=== PATIENT | male | born 1950 | race Hispanic/Latino ===

== ENCOUNTER → 2017-08-12 | Outpatient (CLI) | payer MEDICARE ==
[~2017-08-12] MED LIST: DIATRIZOATE MEGL/DIATRIZOA SOD 30 ML BTL PO ONE
--- NOTE | 2017-08-12 17:47 | Diagnostic Imaging Report ---
PROCEDURE: CT ABDOMEN AND PELVIS WITHOUT CONTRAST TECHNIQUE: The abdomen and pelvis were scanned utilizing a multidetector helical scanner from the diaphragm to the lesser trochanter after the oral administration of Gastroview. No IV contrast was administered because of per physician request. Coronal and sagittal multiplanar reformations were obtained. COMPARISON: None. INDICATIONS: RIGHT LOWER QUADRANT LUMP FINDINGS: ABSENCE OF INTRAVENOUS CONTRAST DECREASES SENSITIVITY FOR DETECTION OF FOCAL LESIONS AND VASCULAR PATHOLOGY. LOWER THORAX: Normal. HEPATOBILIARY: No focal hepatic lesions. Cholecystectomy. No biliary ductal dilatation. Mild pneumobilia in the left upper lobe. SPLEEN: No splenomegaly. PANCREAS: No focal masses or ductal dilatation. ADRENALS: No adrenal nodules. KIDNEYS/URETERS: No hydronephrosis, stones, or solid mass lesions. PELVIC ORGANS/BLADDER: Unremarkable. PERITONEUM / RETROPERITONEUM: No free air or fluid. LYMPH NODES: No lymphadenopathy. VESSELS: Unremarkable. GI TRACT: The ascending segment of the duodenum is tethered to the ascending colon with a likely gas containing fistulous connection (series 2 image 34). This area fistulization extends superiorly to abut the right hepatic lobe edge (series 301 image 37 and also extends to the cholecystectomy clips. There are inflammatory changes extending down the right paracolic gutter. 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 Complete loss of joint space at L1-L2 with opposing Schmorl's node defect. Previous scarring in the right lower quadrant, likely scar from previous appendectomy. (Series 2 image 65) IMPRESSION: 1. Area of palpation in the right lower quadrant, likely represents area of scarring from previous surgery. 2. Fistulous connection between the ascending colon and the duodenum and extends superiorly to abut the right hepatic lobe liver edge as well as the cholecystectomy region. This is concerning for possible malignancy. Correlate for previous possible abscess. Dictated by: Cornelio Robbins M.D. on 08/12/2017 at 17:46 Electronically approved by: Cornelio Robbins M.D. on 08/12/2017 at 17:47
== END ==
LOC: CT 15:14
PROVIDERS: ATTEND Internal Medicine
DX: R19.03 Right lower quadrant abdominal swelling, mass and lump (principal)
CPT/HCPCS: 74176

== ENCOUNTER → 2019-07-16 | Outpatient (CLI) | payer MEDICARE, OTHER ==
[2019-07-16 14:30] LABS: BASOPHILS % 0.3 % (0.0-1.0); EOSINOPHILS # (AUTO) 0.1 (0.0-0.4); EOSINOPHILS % 0.8 % (0.0-6.0); HEMATOCRIT 43.6 % (38.2-49.6); HEMOGLOBIN 14.3 g/dL (14.0-18.0); LYMPHOCYTES # (AUTO) 0.7 (1.0-3.2); LYMPHOCYTES % 8.9 % (18.0-39.1); MEAN CORPUSCULAR HEMOGLOBIN 32.4 pg (28-32); MEAN CORPUSCULAR HGB CONC 32.8 g/dL (31-35); MEAN CORPUSCULAR VOLUME 98.9 fL (81-99); MONOCYTES # (AUTO) 0.2 (0.2-0.8); NEUTROPHILS # (AUTO) 6.9 (2.1-6.9); NEUTROPHILS % 86.2 % (38.7-80.0); PLATELET COUNT 190 x10e3/uL (140-360); RED BLOOD COUNT 4.41 x10e6/uL (4.3-5.7); RED CELL DISTRIBUTION WIDTH 13.7 % (11.7-14.4)
== END ==
LOC: LAB 14:05
PROVIDERS: ATTEND Podiatrist Foot & Ankle Surgery
DX: M10.072 Idiopathic gout, left ankle and foot (principal)
CPT/HCPCS: 36415; 84550; 85025

== ENCOUNTER 2020-01-01 15:25 | Emergency (ER) | payer MEDICARE, OTHER ==
[~2020-01-01] VITALS: Ht 188 cm; Wt 83.9 kg
--- NOTE | 2020-01-01 16:30 | NUR ---
bladder scanner revealed 170 cc
--- OUTSIDE RECORDS SUMMARY | 2020-01-01 17:12 | XMS REPORT | Continuity of Care Document ---
Author Author [facility] t Organization [facility] Address 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, [place] [address] xxxxxxxxx 2012 00:00:00 [facility] Problems Condition Name Condition Details Condition Category Status Onset Date Resolution Date Last Treatment Date Treating Clinician Comments Source Healthcare maintenance Healthcare maintenance Disease Active 2018-02-25 00:00:00 [facility] Chronic kidney disease, unspecified Chronic kidney disease, unsp ecified Disease Active 2016-04-05 00:00:00 [facility] [employer] Vitamin D deficiency Vitamin D deficiency Disease Active 00:00:00 [facility] Human immunodeficiency virus (HIV) disease Human immun odeficiency virus (HIV) disease Disease Active 2015-05-05 00:00:00 [facility] [employer] Hypothyroidism (acquired) Hypothyroidism (acquired) Disease Ac tive 2015-05-05 00:00:00 [facility] Dyslipidemia Dyslipidemia Disease Active 2011-12-20 00:00:00 [facility] History of Past Illness Condition Name Condition Details Condition Category Status Onset Date Resolution Date Last Treatment Date Treating Clinician Comments Source Bladder cancer Bladder cancer Disease Resolved 2018-02-18 00:00: 00 2019-01-08 00:00:00 2019-01-08 09:54:56 Raymond meyers Allergies, Adverse Reactions, Alerts This patient has no known allergies or adverse reactions. Family History Family Member Diagnosis Comments Start Date Stop Date Source Natural father Diabetes [facility] Natural father Heart [facility] Natural mother Heart [facility] Social History Social Habit Start Date Stop Date Quantity Comments Source Sex Assigned At [facility] Exposure to SARS-CoV-2 (event) Not sure [facility] Alcohol intake 2019-12-10 00:00:00 2019-12-10 00:00:00 Current non-drinker of alcohol (finding) [facility] History SDOH Food Worry 2018-02-18 00:00:00 2018-02-18 00:00:00 1 [facility] SDOH Food Scarcity 2018-02-18 00:00:00 2018-02-18 00:00:00 1 [facility] Alcohol Comment 2009-12-13 00:00:00 2009-12-13 00:00:00 None. [facility] Smoking Status Start Date Stop Date Source Never smoker [facility] Medications Ordered Medication Name Filled Medication Name Start Date Stop Da te Current Medication? Ordering Clinician Indication Dosage Frequency Signature (SIG) Comments Components Source tamsulosin (FLOMAX) 0.4 mg extended release capsule 12-09 09:29:52 Yes .4mg QD Take 0.4 mg by mouth daily. [facility] Levothyroxine 75 mcg cap 2019-12-10 09:29:27 Yes Take by mouth. [facility] atorvastatin (LIPITOR) 10 mg tablet 2019-12-10 09:29:23 Yes 5mg Take 5 mg by mouth at bedtime nightly (1/2 tablet of 10mg). [facility] lamiVUDine (EPIVIR) 150 mg tablet 2019-12-10 00:00:00 Yes Human immunodeficiency virus (HIV) disease 150mg QD Take 1 tablet by mout h daily. [facility] dolutegravir (TIVICAY) 50 mg tablet 2019-12-10 00:00:00 Yes Human immunodeficiency virus (HIV) disease 50mg QD Take 1 tablet by mout h daily. [facility] abacavir (ZIAGEN) 300 mg tablet 2019-12-10 00:00:00 Yes Human immunodeficiency virus (HIV) disease 600mg QD Take 2 tablets by mouth daily. [facility] darunavir-cobicistat (PREZCOBIX) 800-150 mg-mg Tab tablet 2019-12-10 00:00:00 Yes Human immunodeficiency virus (HIV) disease 1{tb l} QD Take 1 tablet by mouth daily. [facility] ergocalciferol (VITAMIN D2) 1,250 mcg (50,000 unit) capsule 2019-12-10 00:00:00 Yes Vitamin D deficiency 62097V Take 1 capsule by mouth ONCE A WEEK. [facility] fluconazole (DIFLUCAN) 200 mg tablet 2019-12-10 00:00:00 Yes Onychomycosis of toenail 200mg Take 1 tablet by mouth ONCE A WEEK. [facility] finasteride (PROSCAR) 5 mg tablet 2019-11-29 00:00:00 Yes TK 1 T PO QD [facility] lisinopriL (PRINIVIL, ZESTRIL) 5 mg tablet 2019-10-19 00:00:00 Yes TK ONE T PO QD [facility] lamiVUDine (EPIVIR) 150 mg tablet 2019-06-25 00:00:00 2019 00:00:00 No Human immunodeficiency virus (HIV) disease 150mg QD Take 1 tablet by mouth daily. [facility] dolutegravir (TIVICAY) 50 mg tablet 2019-06-25 00:00:0 0 2019-12-10 00:00:00 No Human immunodeficiency virus (HIV) disease 50mg QD Take 1 tablet by mouth daily. [facility] abacavir (ZIAGEN) 300 mg tablet 2019-06-25 00:00:00 00:00:00 No Human immunodeficiency virus (HIV) disease 600mg QD Take 2 tablets by mouth daily. [facility] darunavir-cobicistat (PREZCOBIX) 800-150 mg-mg Tab tablet 2019-06-25 00:00:00 2019-12-10 00:00:00 No Human immunodeficiency virus (HIV) dis ease 1{tbl} QD Take 1 tablet by mouth daily. [facility] ergocalciferol (VITAMIN D2) 1,250 mcg (50,000 unit) capsule 2019-06-25 00:00:00 2019-12-10 00:00:00 No Vitamin D deficiency 43860M Take 1 capsule by mouth weekly. [facility] fluconazole (DIFLUCAN) 200 mg tablet 2019-06-25 00:00: 00 2019-12-10 00:00:00 No Onychomycosis of toenail 200mg Take 1 tablet by mouth weekly. [facility] lamiVUDine (EPIVIR) 150 mg tablet 2019-06-10 00:00:00 2019 00:00:00 No Human immunodeficiency virus (HIV) disease 150mg QD TAKE 1 TABLET BY MOUTH DAILY [facility] dolutegravir (TIVICAY) 50 mg tablet 2019-06-10 00:00:0 0 2019-06-25 00:00:00 No Human immunodeficiency virus (HIV) disease 50mg QD Take 1 tablet by mouth daily. [facility] abacavir (ZIAGEN) 300 mg tablet 2019-06-10 00:00:00 00:00:00 No Human immunodeficiency virus (HIV) disease 600mg QD Take 2 tablets by mouth daily. [facility] darunavir-cobicistat (PREZCOBIX) 800-150 mg-mg Tab tablet 2019-05-11 00:00:00 2019-06-25 00:00:00 No Human immunodeficiency virus (HIV) dis ease 1{tbl} QD Take 1 tablet by mouth daily. [facility] PREZCOBIX 800-150 mg-mg Tab tablet 2019-05-06 00:00:00 00:00:00 No Human immunodeficiency virus (HIV) disease TAKE 1 TABLET BY MOUTH DAILY [facility] Omeprazole 40 mg capsule 2019-01-08 09:47:07 2019-01-08 00:00:00 No 40mg QD Take 40 mg by mouth daily. [facility] ergocalciferol (VITAMIN D2) 50,000 unit capsule 2019-01-08 00:00:00 2019-06-25 00:00:00 No Vitamin D deficiency 66882S Take 1 capsule by mouth weekly. [facility] fluconazole (DIFLUCAN) 200 mg tablet 2019-01-08 00:00: 00 2019-06-25 00:00:00 No Onychomycosis of toenail 200mg Carlton e 1 tablet by mouth weekly for 180 days. [facility] abacavir (ZIAGEN) 300 mg tablet 2019-01-08 00:00:00 00:00:00 No Human immunodeficiency virus (HIV) disease 600mg QD Take 2 tablets by mouth daily. [facility] dolutegravir (TIVICAY) 50 mg tablet 2019-01-08 00:00:0 0 2019-06-10 00:00:00 No Human immunodeficiency virus (HIV) disease 50mg QD Take 1 tablet by mouth daily. [facility] lamiVUDine (EPIVIR) 150 mg tablet 2019-01-08 00:00:00 2019 00:00:00 No Human immunodeficiency virus (HIV) disease 150mg QD Take 1 tablet by mouth daily. [facility] darunavir-cobicistat (PREZCOBIX) 800-150 mg-mg Tab tablet 2019-01-08 00:00:00 2019-05-11 13:49:28 No Human immunodeficiency virus (HIV) dis ease 1{tbl} QD Take 1 tablet by mouth daily. [facility] tropicamide (MYDRIACYL) 0.5 % ophthalmic solution 2019-01-08 00:00:00 2019-01-08 00:00:00 No 1[drp] Insti ll 1 Drop in each eye once as needed for up to 1 dose (for poor retina scan image). [facility] abacavir (ZIAGEN) 300 mg tablet 2018-10-09 00:00:00 00:00:00 No Human immunodeficiency virus (HIV) disease 600mg QD TAKE 2 TABLETS BY MOUTH DAILY [facility] ergocalciferol (VITAMIN D2) 50,000 unit capsule 2018-07-18 00:00:00 2019-01-08 00:00:00 No Vitamin D deficiency 36077E Take 1 capsule by mouth weekly. [facility] abacavir (ZIAGEN) 300 mg tablet 2018-07-18 00:00:00 00:00:00 No Human immunodeficiency virus (HIV) disease 600mg QD Take 2 tablets by mouth daily. [facility] lamiVUDine (EPIVIR) 150 mg tablet 2018-07-18 00:00:00 2018 00:00:00 No Human immunodeficiency virus (HIV) disease 150mg QD Take 1 tablet by mouth daily. [facility] dolutegravir (TIVICAY) 50 mg tablet 2018-07-18 00:00:0 0 2019-01-08 00:00:00 No Human immunodeficiency virus (HIV) disease 50mg QD Take 1 tablet by mouth daily. [facility] darunavir-cobicistat (PREZCOBIX) 800-150 mg-mg Tab tablet 2018-07-18 00:00:00 2019-01-08 00:00:00 No Human immunodeficiency virus (HIV) dis ease 1{tbl} QD Take 1 tablet by mouth daily. [facility] Immunizations Ordered Immunization Name Filled Immunization Name Date Status Comments Source Zoster Vaccine (Shingrix) 2019-06-25 00:00:00 Completed [facility] Influenza, VACCINE<Fluzone, High Dose>(PF) 2019-04-11 00:0 0:00 Completed [facility] PCV 13 (Pnuemococcal Conjugated 13 Valent) 2019-04-11 00:0 0:00 Completed [facility] Zoster Vaccine (Shingrix) 2018-08-30 00:00:00 [facility] PPV 23 Pneumococcal Polysaccaride 2016-09-20 00:00:00 Comp [facility] PPD 2015-04-25 00:00:00 Completed [facility] Influenza Vaccine 2015-02-16 00:00:00 Completed [facility] PPD 2014-03-26 00:00:00 Completed [facility] Influenza Vaccine 2014-03-26 00:00:00 Completed [facility] Pneumococcal 13-valent conj 0.5 mL injection 2012-10-24 00 :00:00 Completed [facility] PPD 2012-10-24 00:00:[address] [facility] PPD 2011-08-31 00:00:[address] [facility] PPV 23 Pneumococcal Polysaccaride 2011-05-03 00:00:00 Comp [facility] Tdap Tetanus, diphtheria, acellular pertussis Vaccine 2011-05-03 00:00:00 Completed [facility] Influenza Vaccine 2010-03-14 00:00:00 Completed [facility] PPD 2009-12-23 00:00:[address] [facility] Vital Signs Vital Name Observation Time Observation Value Comments Source Systolic blood pressure 2019-06-25 09:11:00 126 mm[Hg] [facility] Diastolic blood pressure 2019-06-25 09:11:00 78 mm[Hg] [facility] Heart rate 2019-06-25 09:11:00 88 /min [facility] Body temperature 2019-06-25 09:11:00 36.44 Jody [facility] Respiratory rate 2019-06-25 09:11:00 18 /min [facility] Body height 2019-06-25 09:11:00 188 cm [facility] Body weight 2019-06-25 09:11:00 81.647 kg [facility] BMI 2019-06-25 09:11:00 23.11 kg/m2 [facility] Oxygen saturation in Arterial blood by Pulse oximetry 06-25 09:11:00 99 /min [facility] Procedures Procedure Date / Time Performed Performing Clinician Sour e URINALYSIS 2019-11-26 09:38:00 Yuri Fuller alth CHLAM/GC DNA AMPLI 2019-11-26 09:38:00 Yuri Fuller [facility] URINALYSIS 2019-11-26 09:38:00 Yuri Fuller alth CBC/DIFF 2019-11-26 09:22:00 Yuri Fuller alth LIVER PROFILE 2019-11-26 09:22:00 Yuri Fuller alth LIPID PROFILE 2019-11-26 09:22:00 Yuri Fuller alth HIV RNA VIRAL LOAD 2019-11-26 09:22:00 Yuri Fuller [facility] CD4/CD8 RATIO GRP 2019-11-26 09:22:00 Yuri Fuller [facility] SYPHILIS MONITOR FOR TREATMENT 2019-11-26 09:22:00 Emre Fuller [facility] BASIC METABOLIC PANEL 2019-11-26 09:22:00 Yuri Fuller [facility] THYROID STIMULATING HORMONE (TSH) 2019-11-26 09:22:00 Heriberto Fuller [facility] PROSTATE SPECIFIC ANTIGEN (PSA) 2019-11-26 09:22:00 Cali Fuller [facility] VIT D, 25-HYDROXY 2019-11-26 09:22:00 Yuri Fuller [facility] HEMOGLOBIN A1C 2019-11-26 09:22:00 Yuri Fuller alth HEPATITIS C VIRUS AB 2019-11-26 09:22:00 Yuri Fuller [facility] URIC ACID 2019-11-26 09:22:00 Yuri Fuller alth CBC 2019-11-26 09:22:00 Yuri Fuller alth CBC/DIFF 2019-06-11 11:00:00 Yuri Fuller alth LIVER PROFILE 2019-06-11 11:00:00 Yuri Fuller alth LIPID PROFILE 2019-06-11 11:00:00 Yuri Fuller alth HIV RNA VIRAL LOAD 2019-06-11 11:00:00 Yuri Fuller [facility] CD4/CD8 RATIO GRP 2019-06-11 11:00:00 Yuri Fuller [facility] SYPHILIS MONITOR FOR TREATMENT 2019-06-11 11:00:00 Emre Fuller [facility] BASIC METABOLIC PANEL 2019-06-11 11:00:00 Yuri Fuller [facility] QUANTIFERON TB GOLD 2019-06-11 11:00:00 Yuri Fuller [facility] THYROID STIMULATING HORMONE (TSH) 2019-06-11 11:00:00 Heriberto Fuller [facility] PROSTATE SPECIFIC ANTIGEN (PSA) 2019-06-11 11:00:00 Cali Fuller [facility] VIT D, 25-HYDROXY 2019-06-11 11:00:00 Yuri Fuller [facility] HEMOGLOBIN A1C 2019-06-11 11:00:00 Yuri Fuller alth HEPATITIS C VIRUS AB 2019-06-11 11:00:00 Yuri Fuller [facility] CBC 2019-06-11 11:00:00 Yuri Fuller alth QUANTIFERON TB GOLD PLUS (BKR) 2019-06-11 11:00:00 Emre Fuller [facility] URINALYSIS 2019-06-11 10:55:00 Yuri Fuller alth URINALYSIS 2019-06-11 10:55:00 Yuri Fuller alth CHLAM/GC DNA AMPLI 2019-06-11 10:05:00 Yuri Fuller [facility] FECAL OCCULT BLOOD 2019-01-23 10:50:00 Yuri Fuller [facility] HEMOCCULT KIT FOR SPECIMEN COLLECTION AT HOME 2019-01-08 09: 23:14 Yuri Fuller [facility] Plan of Care Planned Activity Planned Date Details Comments Source Future Scheduled Test 2022-10-24 00:00:00 [facility] for [facility] neoplasm of colon (procedure) [code = 490351533] [facility] Scheduled Test 2020-11-25 00:00:00 Hemoglobin A1c nessa surement (procedure) [code = 15782046] [facility] Scheduled Test 2020-02-18 00:00:00 IMM Influenza Seas onal Feb to July (>/= 19 yrs) [code = IMM Influenza Seasonal Feb to July (>/= 19 yrs)] [facility] Scheduled Test 2017-10-09 00:00:00 DM Retinal Exam (Y early) [code = DM Retinal Exam (Yearly)] [facility] Scheduled Test 1968 00:00:00 DM Foot Exam (Year ly) [code = DM Foot Exam (Yearly)] [facility] Encounters Start Date/Time End Date/Time Encounter Type Admission Type Att[facility] Care Department Encounter ID Source 2019-10-04 17:17:00 2019-10-04 17:17:00 Emergency E SE [facility] [address] [facility] Results Test Description Test Time Test Comments Results Result Comments Source CT ABDOMEN/PELVIS WO [place] [address] Patient Name: BLAKE EMMANUEL MR #: [id number] : 1950 Age/Sex: 67/M Req #: [id number] Adm Physician: Ordered by: JOCELYN ORTIZ M.D. Report #: [id number] Location: CT Room/Bed: Procedure: [id number] CT/CT ABDOMEN/PELVIS WO Exam Date: Exam Time: REPORT STATUS: Signed PROCEDURE: CT ABDOMEN AND PELVIS WITHOUT CONTRAST TECHNIQUE: The abdomen and pelvis were scanned utilizing a multidetector helical scanner from the diaphragm to the lesser trochanter after the oral administration of Gastroview. No IV contrast was administered because of per physician request. Coronal and sagittal multiplanar reformations were obtained. COMPARISON: None. INDICATIONS: RIGHT LOWER QUADRANT LUMP FINDINGS: ABSENCE OF INTRAVENOUS CONTRAST DECREASES SENSITIVITY FOR DETECTION OF FOCAL LESIONS AND VASCULAR PATHOLOGY. LOWER THORAX: Normal. HEPATOBILIARY: No focal hepatic lesions. Cholecystectomy. No biliary ductal dilatation. Mild pneumobilia in the left upper lobe. SPLEEN: No splenomegaly. PANCREAS: No focal masses or ductal dilatation. ADRENALS: No adrenal nodules. KIDNEYS/URETERS: No hydronephrosis, stones, or solid mass lesions. PELVIC ORGANS/BLADDER: Unremarkable. PERITONEUM / RETROPERITONEUM: No free air or fluid. LYMPH NODES: No lymphadenopathy. VESSELS: Unremarkable. GI TRACT: The ascending segment of the duodenum is tethered to the ascending colon with a likely gas containing fistulous connection (series 2 image 34). This area fistulization extends superiorly to abut the right hepatic lobe edge (series 301 image 37 and also extends to the cholecystectomy clips. There are inflammatory changes extending down the right paracolic gutter. 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 Complete loss of joint space at L1-L2 with opposing Schmorl's node defect. Previous scarring in the right lower quadrant, likely scar from previous appendectomy. (Series 2 image 65) IMPRESSION: 1. Area of palpation in the right lower quadrant, likely represents area of scarring from previous surgery. 2. Fistulous connection between the ascending colon and the duodenum and extends superiorly to abut the right hepatic lobe liver edge as well as the cholecystectomy region. This is concerning for possible malignancy. Correlate for previous possible abscess. Dictated by: Cornelio Roque M.D. on 08/12/2017 at 17:46 Electronically approved by: Cornelio Roque M.D. on 08/12/2017 at 17:47 Dictated By: CORNELIO ROQUE MD 46 Transcribed By: CECY on 08/12/171746 COPY TO: JOCELYN ORTIZ M.D.
--- OUTSIDE RECORDS SUMMARY | 2020-01-01 17:12 | XMS REPORT | Clinical Summary ---
Author Author [facility] ict Organization [facility] ict Address Unknown Phone Unavailable Care Team Providers Care Land Economist Name Role Phone Yuri Harper MD PCP Allergies Comments Active Allergy Reactions Severity Noted Date No Known Allergies 09/28/2010 Medications End Date Status Medication Sig Dispensed Refills Start Date Active tamsulosin (FLOMAX) 0.4 Take 0.4 mg 0 mg extended release by mouth capsule daily. Active atorvastatin (LIPITOR) 10 Take 5 mg by 0 mg tablet mouth at bedtime nightly (1/2 tablet of 10mg). Active Levothyroxine 75 mcg cap Take by 0 mouth. Active finasteride (PROSCAR) 5 TK 1 T PO QD 0 mg tablet 0 Active lisinopriL (PRINIVIL, TK ONE T PO 0 10/19/19 2 ZESTRIL) 5 mg tablet QD 0 Active lamiVUDine (EPIVIR) 150 Take 1 tablet 30 tablet 11 mg tabletIndications: by mouth 0 Human immunodeficiency daily. virus (HIV) disease Active dolutegravir (TIVICAY) 50 Take 1 tablet 30 tablet 11 mg tabletIndications: by mouth 0 Human immunodeficiency daily. virus (HIV) disease Active abacavir (ZIAGEN) 300 mg Take 2 60 tablet 11 0 tabletIndications: Human tablets by 0 immunodeficiency virus mouth daily. (HIV) disease Active darunavir-cobicistat Take 1 tablet 30 tablet 11 (PREZCOBIX) 800-150 mg-mg by mouth 0 Tab tabletIndications: daily. Human immunodeficiency virus (HIV) disease Active ergocalciferol (VITAMIN Take 1 12 capsule 3 D2) 1,250 mcg (50,000 capsule by 0 unit) capsuleIndications: mouth ONCE A Vitamin D deficiency WEEK. Active fluconazole (DIFLUCAN) Take 1 tablet 12 tablet 2 0 7/23/202 200 mg tabletIndications: by mouth ONCE 0 Onychomycosis of toenail A WEEK. 01/08/2019 Discontinued (Therapy comple reese) Omeprazole 40 mg capsule Take 40 mg by 0 mouth daily. 01/08/2019 Discontinued (Reorder) ergocalciferol (VITAMIN Take 1 12 capsule 3 D2) 50,000 unit capsule by 9 capsuleIndications: mouth weekly. Vitamin D deficiency 01/08/2019 Discontinued (Duplicate Orde r) abacavir (ZIAGEN) 300 mg Take 2 60 tablet 6 0 tabletIndications: Human tablets by 9 immunodeficiency virus mouth daily. (HIV) disease 01/08/2019 Discontinued (Reorder) lamiVUDine (EPIVIR) 150 Take 1 tablet 30 tablet 6 mg tabletIndications: by mouth 9 Human immunodeficiency daily. virus (HIV) disease 01/08/2019 Discontinued (Reorder) dolutegravir (TIVICAY) 50 Take 1 tablet 30 tablet 11 mg tabletIndications: by mouth 9 Human immunodeficiency daily. virus (HIV) disease 01/08/2019 Discontinued (Reorder) darunavir-cobicistat Take 1 tablet 30 tablet 11 (PREZCOBIX) 800-150 mg-mg by mouth 9 Tab tabletIndications: daily. Human immunodeficiency virus (HIV) disease 01/08/2019 Discontinued (Reorder) abacavir (ZIAGEN) 300 mg TAKE 2 60 tablet 11 0 tabletIndications: Human TABLETS BY 9 immunodeficiency virus MOUTH DAILY (HIV) disease 01/08/2019 Discontinued (Error) tropicamide (MYDRIACYL) Instill 1 15 mL 0 0.5 % ophthalmic solution Drop in each 9 eye once as needed for up to 1 dose (for poor retina scan image). 06/10/2019 Discontinued (Reorder) abacavir (ZIAGEN) 300 mg Take 2 60 tablet 11 0 tabletIndications: Human tablets by 9 immunodeficiency virus mouth daily. (HIV) disease 05/11/2019 Discontinued (Reorder) darunavir-cobicistat Take 1 tablet 30 tablet 11 (PREZCOBIX) 800-150 mg-mg by mouth 9 Tab tabletIndications: daily. Human immunodeficiency virus (HIV) disease 06/10/2019 Discontinued (Reorder) dolutegravir (TIVICAY) 50 Take 1 tablet 30 tablet 11 mg tabletIndications: by mouth 9 Human immunodeficiency daily. virus (HIV) disease 06/10/2019 Discontinued lamiVUDine (EPIVIR) 150 Take 1 tablet 30 tablet 6 mg tabletIndications: by mouth 9 Human immunodeficiency daily. virus (HIV) disease 06/25/2019 Discontinued (Reorder) ergocalciferol (VITAMIN Take 1 12 capsule 3 D2) 50,000 unit capsule by 9 capsuleIndications: mouth weekly. Vitamin D deficiency 06/25/2019 Discontinued (Reorder) fluconazole (DIFLUCAN) Take 1 tablet 12 tablet 1 0 200 mg tabletIndications: by mouth 9 Onychomycosis of toenail weekly for 180 days. 06/25/2019 Discontinued (Duplicate Orde r) PREZCOBIX 800-150 mg-mg TAKE 1 TABLET 30 tablet 11 Tab tabletIndications: BY MOUTH 9 Human immunodeficiency DAILY virus (HIV) disease 06/25/2019 Discontinued (Reorder) darunavir-cobicistat Take 1 tablet 30 tablet 11 (PREZCOBIX) 800-150 mg-mg by mouth 9 Tab tabletIndications: daily. Human immunodeficiency virus (HIV) disease 06/25/2019 Discontinued (Reorder) lamiVUDine (EPIVIR) 150 TAKE 1 TABLET 30 tablet 11 mg tabletIndications: BY MOUTH 0 Human immunodeficiency DAILY virus (HIV) disease 06/25/2019 Discontinued (Reorder) dolutegravir (TIVICAY) 50 Take 1 tablet 30 tablet 11 mg tabletIndications: by mouth 0 Human immunodeficiency daily. virus (HIV) disease 06/25/2019 Discontinued (Reorder) abacavir (ZIAGEN) 300 mg Take 2 60 tablet 11 0 tabletIndications: Human tablets by 0 immunodeficiency virus mouth daily. (HIV) disease 12/10/2019 Discontinued (Reorder) lamiVUDine (EPIVIR) 150 Take 1 tablet 30 tablet 11 mg tabletIndications: by mouth 0 Human immunodeficiency daily. virus (HIV) disease 12/10/2019 Discontinued (Reorder) dolutegravir (TIVICAY) 50 Take 1 tablet 30 tablet 11 02/06/202 mg tabletIndications: by mouth 0 Human immunodeficiency daily. virus (HIV) disease 12/10/2019 Discontinued (Reorder) abacavir (ZIAGEN) 300 mg Take 2 60 tablet 11 0 tabletIndications: Human tablets by 0 immunodeficiency virus mouth daily. (HIV) disease 12/10/2019 Discontinued (Reorder) darunavir-cobicistat Take 1 tablet 30 tablet 11 (PREZCOBIX) 800-150 mg-mg by mouth 0 Tab tabletIndications: daily. Human immunodeficiency virus (HIV) disease 12/10/2019 Discontinued (Reorder) ergocalciferol (VITAMIN Take 1 12 capsule 3 D2) 1,250 mcg (50,000 capsule by 0 unit) capsuleIndications: mouth weekly. Vitamin D deficiency 12/10/2019 Discontinued (Reorder) fluconazole (DIFLUCAN) Take 1 tablet 12 tablet 2 0 200 mg tabletIndications: by mouth 0 Onychomycosis of toenail weekly. Active Problems Problem Noted Date Healthcare maintenance 02/25/2018 Chronic kidney disease, unspecified 04/05/2016 Vitamin D deficiency 04/05/2016 Human immunodeficiency virus (HIV) disease 5 Hypothyroidism (acquired) 05/05/2015 Dyslipidemia 12/20/2011 Resolved Problems Problem Noted Date Resolved Date Bladder cancer 02/18/2018 01/08/2019 Encounters Care Team Description Date Type Specialty Yuri Harper MD Human immunodeficiency virus (HIV) abbe colmenares (Primary Dx); Vitamin D deficiency; Onychomycosis of toenail 12/10/2019 Telephonic Infectious Diseases Encounter Yuri Harper MD Human immunodeficiency virus (HIV) abbe colmenares (Primary Dx); Vitamin D deficiency; Onychomycosis of toenail; Hypothyroidism (acquired); Dyslipidemia; Stage 3 chronic kidney disease; Healthcare maintenance; 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 Office Visit Infectious Diseases Yuri Harper MD Medications 06/09/2019 Refill Infectious Diseases Yuri Harper MD Medications 05/25/2019 Refill Infectious Diseases Monica Crooks LVN Medications 05/11/2019 Refill Infectious Diseases Yuri Harper MD Medications 04/30/2019 Refill Infectious Diseases Yuri Harper MD Human immunodeficiency virus (HIV) disea se (Primary Dx); Healthcare maintenance; Vitamin D deficiency; Hypothyroidism (acquired); Onychomycosis of toenail 01/08/2019 Office Visit Infectious Diseases after 12/31/2018 Immunizations Name Administration Dates Next Due Influenza Vaccine 02/16/2015, 03/26/2014, Influenza, 04/11/2019 VACCINE<Fluzone, High Dose>(PF) PCV 13 (Pnuemococcal 04/11/2019 Conjugated 13 Valent) PPD 04/25/2015, 03/26/2014, 10/24/2012, , 12/18/2010 12/23/2009 PPV 23 Pneumococcal 09/20/2016, 05/03/2011 Polysaccaride Pneumococcal 13-valent 10/24/2012 conj 0.5 mL injection Tdap Tetanus, diphtheria, 05/03/2011 acellular pertussis Vaccine Zoster Vaccine (Shingrix) 06/25/2019, 08/30/2018 Family History Medical History Relation Name Comments Diabetes Father Heart Father Diabetes Mother Heart Mother Relation Name Status Comments Brother Alive Brother Alive Brother Alive Brother Alive Father Mother Sister Alive Sister Alive Sister Alive Sister Alive Sister Alive Son Alive Son Alive Son Alive Social History Date Tobacco Use Types Packs/Day Years Used Never Smoker Smokeless Tobacco: Never Used Tobacco Cessation: Counseling Given: Yes Drinks/Week oz/Week Comments Alcohol Use 0 Standard drinks or equivalent 0.0 None. No Food Insecurity Answer Date Recorded Within the past 12 months, you worried that your Never rosangela e 02/18/2018 food would run out before you got money to buy more. Within the past 12 months, the food you bought Never true 02/18/2018 just didn't last and you didn't have mo yohannes to get more. Sex Assigned at Date Recorded Not on file Industry Job Start Date Occupation Not on file Not on file Not on file Travel End Travel History Travel Start No recent travel history available. Date Recorded COVID-19 Exposure Response 12/08/2019 3:08 PM CDT In the last month, have you been in contact with No / Unsure someone who was confirmed or suspected to have Coronavirus / COVID-19? Last Filed Vital Signs Reading Time Taken Comments Vital Sign 126/78 06/25/2019 9:11 AM TAIL WORK[employer] Blood Pressure 88 06/25/2019 9:11 AM TAIL WORKER Pulse 36.4 C (97.6 F) 06/25/2019 9:11 AM TAIL WORKER Temperature 18 06/25/2019 9:11 AM TAIL WORKER Respiratory Rate 99% 06/25/2019 9:11 AM TAIL WORKER Oxygen Saturation - - Inhaled Oxygen Concentration 81.6 kg (180 lb) 06/25/2019 9:11 AM TAIL WORKER Weight 188 cm (6' 2") 06/25/2019 9:11 AM TAIL WORKER Height 23.11 06/25/2019 9:11 AM TAIL WORKER Body Mass Index Plan of Treatment Care Team Description Date Type Specialty Yuri Harper MD [address] [place], [place] [id number] FASTING LAB FOR DR. HARPER 05/10/2020 Lab Appointment Lab Yuri Harper MD [address] [place], [place] [id number] 05/26/2020 Office Visit Infectious Diseases Health Maintenance Due Date Last Done Comments DM Foot Exam (Yearly) 1968 DM Retinal Exam (Yearly) 10/09/2017 10/09/2016 IMM Influenza Seasonal 02/18/2020 04/11/2019, Feb to July (>/= 19 yrs) 02/16/2015, 03/26/2014, Additional history exists DM HGBA1C (Yearly) 11/25/2020 11/26/2019, 06/11/2019, 12/19/2018, Additional history exists Colonoscopy 10yr 10/24/2022 10/24/2012 IMM Pneumococcal Age 65 Completed 04/11/2019 and Up Procedures Comments Procedure Name Priority Date/Time Associated Diag nosis URINALYSIS Routine 11/26/2019 Human immunodef iciency 9:38 AM CDT virus (HIV) disease CHLAM/GC DNA AMPLI Routine 11/26/2019 Human immun odeficiency 9:38 AM CDT virus (HIV) disease URINALYSIS Routine 11/26/2019 Human immunodef iciency 9:38 AM CDT virus (HIV) disease CBC Routine 11/26/2019 Human immunodef iciency 9:22 AM CDT virus (HIV) disease URIC ACID Routine 11/26/2019 Other secondary chronic 9:22 AM CDT gout of left foot without tophus HEPATITIS C VIRUS AB Routine 11/26/2019 Human imm unodeficiency 9:22 AM CDT virus (HIV) disease HEMOGLOBIN A1C Routine 11/26/2019 Human immunodef iciency 9:22 AM CDT virus (HIV) disease VIT D, 25-HYDROXY Routine 11/26/2019 Human immuno deficiency 9:22 AM CDT virus (HIV) disease PROSTATE SPECIFIC ANTIGEN Routine 11/26/2019 Lis n immunodeficiency (PSA) 9:22 AM CDT virus (HIV) disease THYROID STIMULATING Routine 11/26/2019 Human immu nodeficiency HORMONE (TSH) 9:22 AM CDT virus (HIV) disease BASIC METABOLIC PANEL Routine 11/26/2019 Human im munodeficiency 9:22 AM CDT virus (HIV) disease SYPHILIS MONITOR FOR Routine 11/26/2019 Human imm unodeficiency TREATMENT 9:22 AM CDT virus (HIV) disease CD4/CD8 RATIO GRP Routine 11/26/2019 Human immuno deficiency 9:22 AM CDT virus (HIV) disease HIV RNA VIRAL LOAD Routine 11/26/2019 Human immun odeficiency 9:22 AM CDT virus (HIV) disease LIPID PROFILE Routine 11/26/2019 Human immunodef iciency 9:22 AM CDT virus (HIV) disease LIVER PROFILE Routine 11/26/2019 Human immunodef iciency 9:22 AM CDT virus (HIV) disease CBC/DIFF Routine 11/26/2019 Human immunodef iciency 9:22 AM CDT virus (HIV) disease QUANTIFERON TB GOLD PLUS Routine 06/11/2019 Human immunodeficiency (BKR) 11:00 AM TAIL WORKER virus (HIV) disease CBC Routine 06/11/2019 Human immunodef iciency 11:00 AM TAIL WORKER virus (HIV) disease HEPATITIS C VIRUS AB Routine 06/11/2019 Human imm unodeficiency 11:00 AM TAIL WORKER virus (HIV) disease HEMOGLOBIN A1C Routine 06/11/2019 Human immunodef iciency 11:00 AM TAIL WORKER virus (HIV) disease VIT D, 25-HYDROXY Routine 06/11/2019 Human immuno deficiency 11:00 AM TAIL WORKER virus (HIV) disease PROSTATE SPECIFIC ANTIGEN Routine 06/11/2019 Lis n immunodeficiency (PSA) 11:00 AM TAIL WORKER virus (HIV) disease THYROID STIMULATING Routine 06/11/2019 Human immu nodeficiency HORMONE (TSH) 11:00 AM TAIL WORKER virus (HIV) disease QUANTIFERON TB GOLD Routine 06/11/2019 Human immu nodeficiency 11:00 AM TAIL WORKER virus (HIV) disease BASIC METABOLIC PANEL Routine 06/11/2019 Human im munodeficiency 11:00 AM TAIL WORKER virus (HIV) disease SYPHILIS MONITOR FOR Routine 06/11/2019 Human imm unodeficiency TREATMENT 11:00 AM TAIL WORKER virus (HIV) disease CD4/CD8 RATIO GRP Routine 06/11/2019 Human immuno deficiency 11:00 AM TAIL WORKER virus (HIV) disease HIV RNA VIRAL LOAD Routine 06/11/2019 Human immun odeficiency 11:00 AM TAIL WORKER virus (HIV) disease LIPID PROFILE Routine 06/11/2019 Human immunodef iciency 11:00 AM TAIL WORKER virus (HIV) disease LIVER PROFILE Routine 06/11/2019 Human immunodef iciency 11:00 AM TAIL WORKER virus (HIV) disease CBC/DIFF Routine 06/11/2019 Human immunodef iciency 11:00 AM TAIL WORKER virus (HIV) disease URINALYSIS Routine 06/11/2019 Human immunodef iciency 10:55 AM TAIL WORKER virus (HIV) disease URINALYSIS Routine 06/11/2019 Human immunodef iciency 10:55 AM TAIL WORKER virus (HIV) disease CHLAM/GC DNA AMPLI Routine 06/11/2019 Human immun odeficiency 10:05 AM TAIL WORKER virus (HIV) disease FECAL OCCULT BLOOD Routine 01/23/2019 Healthcare maintenance 10:50 AM CDT HEMOCCULT KIT FOR Routine 01/08/2019 Healthcare m aintenance SPECIMEN COLLECTION AT 9:23 AM CDT HOME after 12/31/2018 Results * Urinalysis (11/26/2019 9:38 AM CDT) Only the most recent of 2 results within the time period is included. Color Yellow Colorless, Straw, [facility] Yellow [facility] Clarity Hazy (A) Clear [facility] Spec Jackson, 1.015 1.001 - 1.035 [facility] pH, Ur 6.0 5.0 - 8.0 [facility] Protein, Ur 2+ (A) Negative mg/dL [facility] Glucose, Ur Negative Negative mg/dL [facility] Ketone, Ur Negative Negative mg/dL [facility] Bilirubin, Ur Negative Negative mg/dL [facility] Nitrite, Ur Negative Negative [facility] Leukocyte 3+ (A) Negative mg/dL [facility] Blood, Ur 1+ (A) Negative mg/dL [facility] RBC 17 (H) 0 - 4 /HPF [facility] WBC >182 (H) 0 - 5 /HPF [facility] Mucous Present (A) None seen /HPF [facility] Bacteria Few (A) None seen /HPF [facility] WBC Clumps Many (A) None seen /HPF [facility] Urobilinogen, <1.0 <1.0 EU/dL [facility] Specimen Urine - Voided, urine Performing Organization Address City/State/Zipcode Ph one Number [facility] [address] [place], [place] [id number] [phone] * Chlam/GC DNA Amplification (11/26/2019 9:38 AM CDT) Only the most recent of 2 results within the time period is included. Chlamydia Negative Negative [facility] trachomatis LABORATORY N. gonorrhoeae Negative Negative [facility] Specimen Urine Narrative Performed At This test utilizes [employer] Aptima Combo 2 Assay for target amplification of rRNA [facility] for the qualitative detection of Chlamy tanna trachomatis and Neisseria gonorrhoeae. Performing Organization Address City/State/Zipcode Ph one Number [facility] [address] [place] [address] * CBC/Diff (11/26/2019 9:22 AM CDT) Only the most recent of 2 results within the time period is included. WBC 8.7 4.5 - 12.0 K/uL [facility] RBC 4.22 (L) 4.60 - 6.20 M/uL [facility] Hemoglobin 12.9 (L) 14.0 - 18.0 g/dL [facility] Hematocrit 41.3 40.0 - 54.0 % [facility] MCV 97.9 (H) 82.0 - 92.0 fL [facility] MCH 30.6 27.0 - 31.0 pg [facility] MCHC 31.2 (L) 32.0 - 36.0 g/dL [facility] RDW 50.3 (H) 35.1 - 43.9 fL [facility] Platelet 207 150 - 400 K/uL [facility] Mean Platelet 10.8 9.4 - 12.4 fL [facility] Volume [facility] Percent NRBC 0.0 % [facility] Neutrophil 76.6 (H) 34.0 - 67.9 % [facility] Lymphs 13.2 (L) 21.8 - 50.0 % [facility] Monocytes 8.3 5.3 - 12.0 % [facility] Eos 1.2 0.8 - 5.0 % [facility] Basos 0.1 (L) 0.2 - 1.2 % [facility] Immature 0.6 (H) 0.0 - 0.5 % [facility] Granulocytes [facility] Neutrophils 6.64 (H) 1.78 - 5.36 K/uL [facility] (Absolute) LABOR[facility]ORY Lymphs 1.14 (L) 1.32 - 3.57 K/uL [facility] (Absolute) [facility] Monocytes(Absol 0.72 0.30 - 0.82 K/uL [facility] lesa) LABORATORY Eos (Absolute) 0.10 0.04 - 0.54 K/uL [facility] Baso (Absolute) 0.01 0.01 - 0.08 K/uL [facility] Immature Grans 0.05 (H) 0.00 - 0.03 K/uL [facility] (Abs) [facility] Absolute NRBC 0.00 K/uL [facility] Specimen Blood Performing Organization Address [facility] one Number [facility] [address] [place], [place] [phone] * Vitamin D, 25-Hydroxycalciferol (11/26/2019 9:22 AM CDT) Only the most recent of 2 results within the time period is included. Vit D, 10.0 (L) 30.0 - 100.0 ng/mL [facility] 25-Hydroxy LAB[facility] Vitamin D Deficient (A) Sufficient [facility] Interpretation Comment: LAB[facility] Sufficient: >30.0 Insufficient: 20.0 - 29.9 Deficient: <20.0 Specimen Blood Performing Organization Address [facility] one Number [facility] [address] [place] [address] * Hemoglobin A1C (11/26/2019 9:22 AM CDT) Only the most recent of 2 results within the time period is included. Hemoglobin A1c 6.9 (H) 4.3 - 6.1 % [facility] Estimated 151 (H) 70 - 110 mg/dL [facility] Average Glucose LAB[facility]ORY Specimen Blood Performing Organization Address [facility] one Number [facility] [address] [place], [place] [phone] * TSH [Thyroid Stimulating Hormone] (11/26/2019 9:22 AM CDT) Only the most recent of 2 results within the time period is included. TSH 2.39 0.45 - 5.33 uIU/mL [facility] Specimen Blood Performing Organization Address [facility] one Number [facility] [address] [place] [address] * PSA (11/26/2019 9:22 AM CDT) Only the most recent of 2 results within the time period is included. Pathologist [facility] PSA 0.240 <=4.000 ng/mL [facility] Specimen Blood Performing Organization Address [facility] one Number [facility] [address] [place] [address] [phone] * Uric Acid (11/26/2019 9:22 AM CDT) Pathologist [facility] Uric Acid 8.3 (H) 4.4 - 7.6 mg/dL [facility] Specimen Blood Performing Organization Address [facility] one Number [facility] [address] [place] [address] * CD4/CD8 Ratio Grp (11/26/2019 9:22 AM CDT) Only the most recent of 2 results within the time period is included. Pathologist [facility] Lymphocyte Abs 1,131 % [facility] CD4 Absolute 226 (L) 431-1,623 cells/uL [facility] CD8 Absolute 532 170-1,078 cells/uL [facility] CD4/CD8 Ratio 0.42 (L) 0.86 - 2.05 ratio [facility] WBC 8.7 4.5 - 12.0 K/uL [facility] Lymphs 13.0 (L) 21.8 - 50.0 % [facility] CD4% 20.0 (L) 25.0 - 56.0 % [facility] CD8% 47.0 (H) 14.2 - 35.8 % [facility] Specimen Blood Performing Organization Address [facility] one Number [facility] [address] [place] [address] * Syphilis Monitor for Treatment (11/26/2019 9:22 AM CDT) Only the most recent of 2 results within the time period is included. Pathologist [facility] RPR Reactive (A) Non-reactive [facility] RPR Titer 1:8 Titer [facility] Specimen Blood Narrative Performed At PREVIOUSLY POSITIVE BY TPPA ON 03/26/2013. [facility] Performing Organization Address [facility] one Number [facility] [address] [place] [address] * Liver Profile (11/26/2019 9:22 AM CDT) Only the most recent of 2 results within the time period is included. Pathologist [facility] Total Protein 7.8 6.0 - 8.3 g/dL [facility] Bilirubin, 0.3 0.2 - 1.2 mg/dL [facility] Total LAB[facility] Alkaline 97 34 - 104 U/L [facility] Phosphatase [facility] AST 14 13 - 39 U/L [facility] Direct 0.1 0.0 - 0.2 mg/dL [facility] Bilirubin [facility] ALT 13 7 - 52 U/L [facility] Albumin 4.1 (L) 4.2 - 5.5 g/dL [facility] Specimen Blood Performing Organization Address [facility] one Number [facility] [address] [place] [address] [phone] * Lipid Profile (11/26/2019 9:22 AM CDT) Only the most recent of 2 results within the time period is included. Pathologist [facility] Cholesterol 157.0 <=200.0 mg/dL [facility] Triglyceride 179 (H) <150 mg/dL [facility] HDL 33.0 See Reference Range [facility] Narrative. mg/dL LAB[facility]ATORY LDL 88 <100 mg/dL [facility] Comment: [facility] Optimal: < 100.0 mg/dL Near Optimal: 120-129 mg/dL Borderline: 130-159 mg/dL High: 160-189 mg/dL Very High: >=190 mg/dL Patient Yes [facility] Fasting? LABORATORY Specimen Blood Performing Organization Address [facility] one Number [facility] [address] [place] [address] * HIV-1 RNA (11/26/2019 9:22 AM CDT) Only the most recent of 2 results within the time period is included. [facility] HIV-1 RNA Not detected Not detected [facility] Specimen Blood Narrative Performed At This test utilizes FDA cleared [employer] Am pliPrep/S[employer] TaqMan HIV-1 test 2.0 from [facility] which allo ws quantitation of viral loads between 20 and 10,000,000 copies/mL of plasma. Whe n the result is positive but less than 20 copies/mL of HIV-1 RNA, the test result will be reported as detected but less than 20 copies/mL". The [employer] AmpliPrep / [employer] TaqManHIV-1 test, version 2.0 is not intended for use as a screening poonam t for the presence of HIV-1 RNA in blood or a diagnostic test to confirm the pre sence of HIV infection. This test is intended for use as an aid in the manag ement of patients with HIV-1 infection. Performing Organization Address [facility] one Number [facility] [address] [place] [address] * Hepatitis C Virus Ab IgG (11/26/2019 9:22 AM CDT) Only the most recent of 2 results within the time period is included. Pathologist [facility] Hepatitis C Negative Negative [facility] Virus (HCV) LABORATORY Antibody Specimen Blood Performing Organization Address [facility] one Number [facility] [address] [place] [address] [phone] * Basic Metabolic Panel (11/26/2019 9:22 AM CDT) Only the most recent of 2 results within the time period is included. Pathologist [facility] Sodium 142 136 - 145 mmol/L [facility] Potassium 4.8 3.5 - 5.1 mmol/L [facility] Chloride 112 (H) 98 - 107 mmol/L [facility] CO2 15 (L) 21 - 31 mmol/L [facility] Urea Nitrogen 32.0 (H) 7.0 - 25.0 mg/dL [facility] Creatinine 2.3 (H) 0.7 - 1.3 mg/dL [facility] Glucose 143 (H) 70 - 110 mg/dL [facility] Calcium 8.3 (L) 8.6 - 10.3 mg/dL [facility] GFR, Estimated 28 (L) >=90 mL/min/1.73 m2 [facility] Anion Gap 15 5 - 16 mmol/L [facility] Specimen Blood Performing Organization Address [facility] one Number [facility] [address] [place], [place] [id number] * Quantiferon TB Gold Plus (06/11/2019 11:00 AM TAIL WORKER) Pathologist [facility] QuantiFERON Comment [facility] Criteria Comment: The QuantiFERON-TB Gold Plus result is determined by subtracting the Nil value from either TB antigen (Ag) tube. The mitogen tube serves as a control for the test. Quantiferon TB1 0.08 IU/mL BT [facility] Quantiferon TB2 0.07 IU/mL BT [facility] QuantiFERON Nil 0.06 IU/mL BT [facility] Value QuantiFERON >10.00 IU/mL BT [facility] Mitogen Value Specimen Blood Narrative Performed At Performed at: 02 - [facility] [address] [id number] Financial Services Intern: Clemente Chow MD, Phone: [phone] Performing Organization Address [facility] one Number [facility] [address] [place] [phone] * Quantiferon TB Gold (In Tube) (06/11/2019 11:00 AM TAIL WORKER) [facility] QuantiFERON Incubation performed. [facility] Incubation QuantiFERON TB Negative Negative BT [facility] Gold Plus Specimen Blood Narrative Performed At Performed at: [facility] [address] [place] [id number] Financial Services Intern: Yao Wilkes MD, Phone: [phone] Performed at: [facility] [place] [address] [place] [id number] Financial Services Intern: Clemente Chow MD, Phone: [phone] Performing Organization Address [facility] one Number [facility] [address] [place] [address] * FECAL OCCULT BLOOD (01/23/2019 10:50 AM CDT) [facility] Occult Blood Positive (A) Negative [facility] Specimen Stool - Feces Performing Organization Address [facility] one Number [facility] [address] [place] [address] [phone] [facility] after 12/31/2018 Insurance Type Payer Benefit Subscriber ID Effective Phone Address Plan / Dates Group [employer] xxxxxxxxx 2018-P [phone] [address] MED[address]ARE MEDICARE resent [id number] [place] [address] [place] MED[place] [id number] xxxxxxxxx 2012-P [phone] [address] QUALIFIED resent [id number] MEDICARE [place], [place] BENEFICIAR [id number] Y
[2020-01-01 17:19] LABS: BASOPHILS % 0.2 % (0.0-1.0); EOSINOPHILS # (AUTO) 0.1 (0.0-0.4); EOSINOPHILS % 0.7 % (0.0-6.0); HEMATOCRIT 33.8 % (38.2-49.6); LYMPHOCYTES # (AUTO) 0.6 (1.0-3.2); LYMPHOCYTES % 6.3 % (18.0-39.1); MEAN CORPUSCULAR HEMOGLOBIN 30.3 pg (28-32); MEAN CORPUSCULAR HGB CONC 32.5 g/dL (31-35); MEAN CORPUSCULAR VOLUME 93.1 fL (81-99); MONOCYTES # (AUTO) 0.6 (0.2-0.8); MONOCYTES % 6.9 % (4.4-11.3); NEUTROPHILS # (AUTO) 7.8 (2.1-6.9); NEUTROPHILS % 85.3 % (38.7-80.0); PLATELET COUNT 183 x10e3/uL (140-360); RED BLOOD COUNT 3.63 x10e6/uL (4.3-5.7); RED CELL DISTRIBUTION WIDTH 14.7 % (11.7-14.4)
--- NOTE | 2020-01-01 17:26 | Emergency Department Note ---
History of Present Illnes History of Present Illness Chief Complaint: Genitourinary History of Present Illness This is a 69 year old male arrived to the ED with complaints of diff iculty urinating. 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 Any updates have been documented here. Past Medical History Recent Fever: No Clinical Suspicion of Infectio: No New/Unexplained Change in Ment: No Past Medical History: Hypertension, Diabetes, CAD Other Medical History: hypercholesterol and bph Review of Systems Review of Systems Constitutional: Reports no symptoms EENTM: Reports no symptoms Cardiovascular: Reports no symptoms Respiratory: Reports no symptoms Gastrointestinal: Reports no symptoms Genitourinary: Reports as per HPI, Reports dysuria Musculoskeletal: Reports no symptoms Integumentary: Reports no symptoms Neurological: Reports no symptoms Psychological: Reports no symptoms Endocrine: Reports no symptoms Hematological/Lymphatic: Reports no symptoms Physical Exam Related Data Allergies: Coded Allergies: No Known Allergies (Unverified , 01/01/20) Triage Vital Signs Vital Signs Date Time Temp Pulse Resp B/P (MAP) Pulse Ox O2 Delivery O2 Flow Rate FiO2 01/01/20 15:54 98.8 94 18 122/67 100 Room Air Vital signs reviewed: Yes Physical Exam CONSTITUTIONAL Constitutional: Present well-developed, Present well-nourished HENT HENT: Present normocephalic, Present atraumatic, Present oropharynx clear/moist, Present nose normal HENT L/R: Present left ext ear normal, Present right ext ear normal EYES Eyes: Reports PERRL, Reports conjunctivae normal NECK Neck: Present ROM normal PULMONARY Pulmonary: Present effort normal, Present breath sounds normal CARDIOVASCULAR Cardiovascular: Present regular rhythm, Present heart sounds normal, Present capillary refill normal, Present normal rate GASTROINTESTINAL Abdominal: Present soft, Present nontender, Present bowel sounds normal GENITOURINARY Genitourinary: Present exam deferred SKIN Skin: Present warm, Present dry MUSCULOSKELETAL Musculoskeletal: Present ROM normal NEUROLOGICAL Neurological: Present alert, Present oriented x 3, Present no gross motor or sensory deficits PSYCHOLOGICAL Psychological: Present mood/affect normal, Present judgement normal Results Laboratory Lab results reviewed: Yes Assessment & Plan Medical Decision Making ABDOUL 69 M arrived to the ED with complaints of urinary retention and suprapubic pain- esparza catheter drained 200cc of urine. Patient's urologist informed- Dr. Ch Recommended removal of Esparza catheter and outpatient urology follow-up. Lab work reviewed no evidence of renal failure. Assessment & Plan Final Impression: (1) Urinary retention Depart Disposition: HOME, SELF-CARE Last Vital Signs Date Time Temp Pulse Resp B/P (MAP) Pulse Ox O2 Delivery O2 Flow Rate FiO2 01/01/20 15:54 98.8 94 18 122/67 100 Room Air VICENTE COE DO Jan 01, 2020 17:26
[2020-01-01 17:34] LABS: ALBUMIN 3.4 g/dL (3.5-5.0); ALBUMIN/GLOBULIN RATIO 0.9 (0.8-2.0); ANION GAP 14.6 mmol/L (8-16); CALCIUM 8.3 mg/dL (8.4-10.2); CREATININE, SERUM 2.68 mg/dL (0.72-1.25); POTASSIUM 4.6 mmol/L (3.5-5.1)
[2020-01-01] MEDS ORDERED: SODIUM CHLORIDE 0.9% 1000ML 1,000 ML IV STA (17:48)
[2020-01-01] MEDS ORDERED: FLOMAX0.4 MG PO (17:51)
[2020-01-01] MEDS ORDERED: MORPHINE SULFATE INJ 4 MG/ML INJ 1ML IV PRN (18:00)
[2020-01-01] MEDS ORDERED: ONDANSETRON HCL INJ 2MG/ML 2ML 2 MG/ML VIAL IV PRN (18:00)
[2020-01-01 18:46] VITALS: BP 115/59
== END 2020-01-01 19:01 | disposition home or self-care (01) ==
LOC: ER 15:35
DX: R33.9 Retention of urine, unspecified (principal); R10.30 Lower abdominal pain, unspecified; I10 Essential (primary) hypertension; E11.9 Type 2 diabetes mellitus without complications; I25.10 Atherosclerotic heart disease of native coronary artery without angina pectoris
CPT/HCPCS: 36415; 51700; 80053; 85025; 99284; J2270; J2405; J7030